=== PATIENT | female | born 1965 | race Caucasian/White ===

== ENCOUNTER → 2017-02-08 | Outpatient (CLI) | payer MEDICARE, OTHER ==
[~2017-02-08] MED LIST: ASPIRIN81 M1 PO; CARAFATE1 G PO; CATAPRES-TTS-20.2 MG PO; CATAPRES0.1 MG PO; FAMOTIDINE PO; FISH OIL500 M2 PO; IBUPROFEN800 MG PO; LIPITOR20 MG PO; LORTAB 5-325 M1 EACH PO; LORTAB 7.51 TAB 7.5/ DOB; MOBIC; NIASPAN; PREDNISONE PO; PRILOSEC40 MG PO; PROTONIX PO; ROBAXIN500 MG PO; SEROQUEL PO; SEROQUEL50 M1 PO; SYNTHROID0.05 MG DOB; XANAX1 MG PO; ZOLOFT100 MG PO
--- NOTE | ~2017-02-08 | BD1 ---
[facility] A Service of [facility] RADIOLOGY TEXT RESULTS PATIENT: JENNIFER VELASCO LOCATION: [facility] : 61 UNIT #: [id number] AGE: [address]: JOLYNN GREEN SEX: F ORDER DR: [id number] [address] [address] [id number] O MR#: [id number] Acc #: [id number] NAME: JENNIFER VELASCO : 1965 SEX: F STUDY DATE/TIME: 02/08/2017 13:33 UNIT: [facility] ROOM: STUDY DESCRIPTION: Dexa Bone Dens 1+ Site Attending Physician: Jolynn Green M.D. Referring Physician: Jolynn Green M.D. Ordering Physician: Jolynn Green M.D. Primary Care Physician: Lei Hayes M.D. MEDICAL IMAGING REPORT This report is preliminary unless electronic signature is present. EXAM DEXA scan 02/08/2017 HISTORY Status post met menopause with no hormone replacement therapy. Osteopenia. Hypertension with blood pressure medication for 5 years. Thyroid medication levothyroxine use for 3 years. Smoking history for 20 years. FINDINGS Bone mineral density in the lumbar spine from L1-L4 is 1.093 g/cm2 which is 0.7 standard deviations below the mean when compared to the young adult reference population which is within the range of normal. This is 0.7 standard deviations below the mean when compared to the age-matched population. Bone mineral density in the left femoral neck was 0.996 g/cm2 which is 0.3 standard deviations below the mean when compared to the young adult reference population which is within the range of normal. This is 0.2 standard deviations above the mean when compared to the age-matched population. Bone mineral density in the right femoral neck was 0.92 g/cm2 which is 0.9 standard deviations below the mean when compared to the young adult reference population which is within the range of normal. This is 0.3 standard deviations below the mean when compared to the age-matched population. IMPRESSION Bone mineral density in the lumbar spine and the hips bilaterally within the range of normal. Dictated by... Jose Torre M.D. THIS IS AN ELECTRONICALLY VERIFIED REPORT [facility]. [facility] A Service of [facility] RADIOLOGY TEXT RESULTS PATIENT: JENNIFER VELASCO LOCATION: [facility] : 61 UNIT #: [id number] AGE: [address]: JOLYNN GREEN SEX: F ORDER DR: Jose Torre M.D. at 02/09/2017 8:29 AM KRT/to TD: 02/08/2017 14:15 JOB #: [id number] MEDICAL IMAGING REPORT Page 1 of 1
== END | disposition home or self-care (01) ==
LOC: SRAD 13:11
DX: M81.0 Age-related osteoporosis without current pathological fracture (principal)
CPT/HCPCS: 77080